=== PATIENT | female | born 1960 | race Caucasian/White ===

== ENCOUNTER 2021-07-07 07:09 | Emergency (ER) | payer BC, SELFPAY ==
[2021-07-07] VITALS (8 sets, daily range): BP systolic 101–126; BP diastolic 61–77; PULSE 71–130; RESP 14–21; TEMP 36.5–37; O2SAT 92–98; BMI 46.7
--- NOTE | 2021-07-07 07:09 | ECG_ITS ---
APPROVED REPORT Exam: Resting ECG HR:137 bpm ECG Measurements Heart Rate 137 AXES QRSd 72 QRS -10 QT 292 T 53 QTc 372 Conclusion SUPRAVENTRICULAR TACHYCARDIA MINIMAL ST DEPRESSION [0.025+ mV ST DEPRESSION] ABNORMAL RHYTHM ECG UNCONFIRMED REPORT Electronically signed by : Sabino Rodrigues MD 07/08/2021 08:16:53
--- NOTE | 2021-07-07 07:20 | PC.NURSE ---
GERALD SHOEMAKER spoke with Dr Lee.
--- NOTE | 2021-07-07 07:30 | ECG_ITS ---
APPROVED REPORT Exam: Resting ECG HR:82 bpm ECG Measurements Heart Rate 82 AXES HI 193 P 149 QRSd 100 QRS -17 QT 380 T 135 QTc 418 Conclusion ECTOPIC ATRIAL RHYTHM LEFT ATRIAL ENLARGEMENT [-0.15mV P-WAVE IN V1/V2] MODERATE T-WAVE ABNORMALITY, CONSIDER LATERAL ISCHEMIA [-0.1+ mV T-WAVE IN I/aVL/V5/V6] ABNORMAL ECG UNCONFIRMED REPORT Electronically signed by : Sabino Rodrigues MD 07/08/2021 08:16:51
--- NOTE | 2021-07-07 07:30 | PC.NURSE ---
pt states now pain free
--- NOTE | 2021-07-07 07:35 | CA_ITS ---
APPROVED REPORT EXAM: Comprehensive 2D, Doppler, and color-flow Echocardiogram Wood Finisher Apprentice: Denise Lawrence RT(R) Ht: 5 ft 6 in Wt: 350lbs BSA: 2.54 BP: 118/84 mmHg Indications: CP, smoker, obesity, hyperlipidemia, HTN, DM, obesity, family history of HD. 2D Dimensions LVEF (Brush's) 54.10 % F: 54 - 74 LV Volume 99.90 mL F: 46 - 106 LV Volume Index 39.48 mL/m2 F: 29 - 61 LA Volume 36.50 mL LA Volume Index 14.42 mL/m2 (M/F) 16-34 M-Mode Dimensions RVDd 2.76 cm (0.9-2.6) LVDd 4.09 cm (3.5-5.7) LVDs 3.26 cm (3.5-5.7) IVSd 1.23 cm (0.6-1.1) PWd 1.18 cm (0.6-1.1) EF (Teich) 42.00% FS 20.30% EDV (Teich) 73.80 mL ESV (Teich) 42.80 mL LV Diastology E Decel Time 203.00 (160-240 msec) E/A Ratio 1.2 MED E' 4.90 (< 7 cm/sec) E'/MED E' Ratio 22.29 (>14) LAT E' 6.70 (<10 cm/sec) E/LAT E' Ratio 16.30 (>14) Mitral Valve MV E Max Winston. 109.00 (40-130 cm/s) MV A Velocity 89.00 (40-130 cm/s) E/A Ratio 1.22 MV Decel. Time 203.00 (160-240 ms) MV PHT 60.00 ms Left Ventricle Left atrium mildly enlarged, left ventricle is normal size, mild concentric left ventricular hypertrophy, estimated ejection fraction 55% with no regional wall motion abnormality in the obtained views, endocardial subsequently visualized, grade 1 diastolic dysfunction seen with tissue Doppler evidence of raise left atrial pressure. Right Ventricle Right atrium and right ventricle are normal size and contractility. Aortic Valve Aortic valve is poorly visualized, Doppler is not indicated of a significant aortic stenosis or aortic insufficiency. Mitral Valve Mitral valve has mitral annular calcification, there is no mitral stenosis, there is trace mitral regurgitation. Tricuspid Valve Tricuspid grossly normal, there is trace tricuspid regurgitation, tricuspid regurgitation jet velocity is inadequate for calculation of the right ventricular systolic pressure. Pulmonic Valve Pulmonic valve is poorly visualized. Great Vessels Aortic root is normal size. Inferior vena cava is poorly visualized. Pericardium No significant pericardial effusion noted. Conclusion 1. Mildly enlarged left atrium, normal left ventricular size, mild concentric left ventricular hypertrophy, estimated ejection fraction 55% with no regional wall motion abnormality in the obtained views, endocardial subsequently visualized, grade 1 diastolic dysfunction seen with tissue Doppler evidence of raise left atrial pressure. 2. Trace mitral and tricuspid regurgitation. 3. No significant pericardial effusion. 4. Inferior vena cava is poorly visualized. Electronically signed by : Og Sheehan MD 07/07/2021 15:22:32
--- NOTE | 2021-07-07 07:35 | PC.NURSE ---
Walked out and grabbed patient's daughter. Daughter at bedside.
--- NOTE | 2021-07-07 07:35 | XR_ITS ---
FINAL REPORT CLINICAL HISTORY: chest pain FINDINGS: SINGLE VIEW CHEST. The heart is normal in size. The mediastinum is unremarkable. The lungs are clear. There is no pneumothorax. IMPRESSION: No acute process. Reviewed, Interpreted and Dictated by Rene Fisher III, MD Transcribed by Magali An Authenticated by Rene Fisher III, MD on 07/07/2021 08:29:24 AM [facility]
--- NOTE | 2021-07-07 07:36 | PC.NURSE ---
notified CV lab staff of echo order
--- NOTE | 2021-07-07 07:46 | HMH.EDARPALP ---
ED Disposition Clinical Impression: SVT (supraventricular tachycardia), Renal insufficiency Obesity Qualifiers: Obesity type: due to excess calories Obesity classification: adult class 3 (BMI >= 40) Serious obesity comorbidity presence: with serious comorbidity Body mass index: BMI 45.0-49.9 Qualified Code(s): E66.01 - Morbid (severe) obesity due to excess calories Disposition: Home, Self-Care Condition on Discharge: Good Instructions: Paroxysmal Supraventricular Tachycardia Additional Instructions: use meds and see pcp and card for follow up Prescriptions: dilTIAZem HCL [Cardizem CD 120mg Cap] 120 mg PO DAILY #30 cap Transmission Status: Pending to [id number] Referrals: Teagan De La Garza APRN [Primary Care Provider] - - Critical Care Critical Care Time: No Attestation: On 07/07/21, the high probability of a clinically significant, sudden or life threatening deterioration of the following system(s) required my full and direct attention, intervention and personal management. The time I documented below is in addition to time spent performing reported procedures but includes the following listed in this critical care notation. Medical Decision Making - Medical Records Medical records reviewed: Yes: I reviewed the patient's medical records. - Fidel Inquiry Pt receiving controlled substance: No Vital Signs: 07/07/21 06:52 07/07/21 07:29 07/07/21 08:13 Temperature 97.7 F Temperature Source Oral Pulse Rate 83 76 Pulse Rate [Radial] 130 H Respiratory Rate 20 21 20 Blood Pressure 118/74 116/61 Blood Pressure [Right Arm] 109/65 L Blood Pressure Mean 81 79 Blood Pressure Mean [Right Arm] 79 Blood Pressure Position [Right Arm] Sitting 02 Sat by Pulse Oximetry 98 95 97 Oxygen Delivery Method Room Air Nasal Cannula Nasal Cannula Oxygen Flow Rate (LPM) 2 2 07/07/21 08:30 07/07/21 09:01 07/07/21 10:01 Temperature Temperature Source Pulse Rate 74 77 71 Pulse Rate [Radial] Respiratory Rate 20 21 19 Blood Pressure 120/67 121/77 124/71 Blood Pressure [Right Arm] Blood Pressure Mean 79 91 94 Blood Pressure Mean [Right Arm] Blood Pressure Position [Right Arm] 02 Sat by Pulse Oximetry 95 97 94 L Oxygen Delivery Method Nasal Cannula Nasal Cannula Nasal Cannula Oxygen Flow Rate (LPM) 2 2 2 07/07/21 10:31 Temperature Temperature Source Pulse Rate 71 Pulse Rate [Radial] Respiratory Rate 14 Blood Pressure 126/61 Blood Pressure [Right Arm] Blood Pressure Mean 82 Blood Pressure Mean [Right Arm] Blood Pressure Position [Right Arm] 02 Sat by Pulse Oximetry 95 Oxygen Delivery Method Nasal Cannula Oxygen Flow Rate (LPM) 2 - Lab Data Lab results reviewed: Yes: I reviewed the patient's lab results. Lab Results 07/07/21 07:20: WBC 10.3, RBC 5.01, Hgb 14.4, Hct 45.4, MCV 90.6, MCH 28.8, MCHC 31.8, RDW 14.6, Plt Count 367, MPV 10.1, Neut % (Auto) 76.2, Lymph % (Auto) 16.0, [place] % (Auto) 5.3, Eos % (Auto) 1.7, Baso % (Auto) 0.8, Neut # (Auto) 7.9 H, Lymph # (Auto) 1.7, [place] # (Auto) 0.6, Eos # (Auto) 0.2, Baso # (Auto) 0.1 07/07/21 07:20: Sodium 139, Potassium 4.8, Chloride 107, Carbon Dioxide 22, Anion Gap 14.8, BUN 31 H, Creatinine 1.10 H, Estimated Creat Clear 51, Estimated GFR 51 L, Est GFR ( Amer) 61, Glucose 242 H, Calcium 8.9, Troponin I < 0.01, NT-Pro-B Natriuret Pep 633 H, TSH 4.06 07/07/21 07:20: Total Bilirubin 0.4, Direct Bilirubin 0.4, Conjugated Bilirubin 0.0, Indirect Bilirubin 0.0, Unconjugated Bilirubin 0.0, AST 29, ALT 26, Alkaline Phosphatase 121, C-Reactive Protein 33.0 H, Total Protein 7.1, Albumin 4.0 07/07/21 07:20: Free T4 1.04 07/07/21 07:20: ESR 59 H Result diagrams: 07/07/21 07:20 07/07/21 07:20 Orders (Tests/Meds): ED MEDICATIONS Discontinued Medications Generic Name Dose Route Start Last Admin Trade Name Freq PRN Reason Stop Dose Admin Adenosine 6 mg 07/07/21 07:39 07/07/21 07:28 Adenosine 6mg/2ml Vial I
[2021-07-07 07:49] LABS: Basophils # 0.1 K/mm3 (0-0.2); Basophils % 0.8 % (0.1-2.0); Eosinophils # 0.2 K/mm3 (0.0-0.4); Eosinophils % 1.7 % (0.1-12.0); Hematocrit 45.4 % (37.0-47.0); Hemoglobin 14.4 g/dL (12.2-16.2); Lymphocytes # 1.7 K/mm3 (0.7-4.5); Mean Corpuscular HGB Conc 31.8 g/dL (31.8-35.4); Mean Corpuscular Hemoglobin 28.8 pg (27.0-31.2); Mean Corpuscular Volume 90.6 fl (81-99); Mean Platelet Volume 10.1 fl (7.4-10.4); Monocytes # 0.6 K/mm3 (0.1-1.0); Monocytes % 5.3 % (1.7-9.3); Neutrophils # 7.9 K/mm3 (1.8-7.8); Neutrophils % 76.2 % (37.0-80.0); Platelet Count 367 K/mm3 (142-424); Red Blood Count 5.01 M/mm3 (4.20-5.40); Red Cell Distribution Width 14.6 % (11.5-17.5); White Blood Count 10.3 K/mm3 (4.8-10.8)
[2021-07-07 07:50] LABS: Chloride 107 mmol/L (98-107); Potassium 4.8 mmoL/L (3.5-5.1); Sodium 139 mmol/L (136-145)
--- NOTE | 2021-07-07 07:50 | PC.NURSE ---
IV ultrasound RN at bedside
[2021-07-07 07:52] LABS: Alanine Aminotransferase 26 U/L (12-78); Alkaline Phosphatase 121 U/L (38-126); Aspartate Amino Transferase 29 U/L (14-36); Bilirubin,Direct 0.4 mg/dl (0.0-0.4); Bilirubin,Total 0.4 mg/dl (0.2-1.3)
[2021-07-07 07:53] LABS: Anion Gap 14.8 mEq/L (5-15); Blood Urea Nitrogen 31 mg/dl (7-17); Calcium 8.9 mg/dl (8.4-10.2); Carbon Dioxide 22 mmol/L (22.0-30.0); Creatinine Clearance Estimated 51 mL/min (50-200); Estimated Glomerular Filt Rate 51 ml/min (>60); GFR (African American) 61 ML/MIN (>60); Glucose 242 mg/dl (74-100); Total Protein,Serum 7.1 g/dl (6.3-8.2)
[2021-07-07 08:04] LABS: NT Pro Brain Natriuretic Pep. 633 pg/mL (0-125)
[2021-07-07 08:08] LABS: Troponin I < 0.01 ng/ml (0.00-0.034)
[2021-07-07 08:12] LABS: Free T4 (Free Thyroxine) 1.04 ng/dl (0.78-2.19)
[2021-07-07 08:25] LABS: Thyroid Stimulating Hormone 4.06 uIU/mL (0.465-4.68)
[2021-07-07 08:42] LABS: Erythrocyte Sedimentation Rate 59 mm/hr (0-30)
--- NOTE | 2021-07-07 10:15 | PC.NURSE ---
breanna blackn at BS
--- NOTE | 2021-07-07 11:10 | HMH.CNCARD ---
History of Present Illness Consult date: 07/07/21 Requesting physician: Darnell Felipe Chief complaint: racing heart and anxiety History of present illness: This is a 60-year-old white female who presented to the emergency department with complaints of a racing heart. The patient states that she has anxiety in her chest at times but her episode this morning was much harder and faster than normal. She states that this made her chest uncomfortable. The she states that this did make her feel little short of breath as well. She reports that she does see Dr. Berg regularly. She does have a history with stenting in 2005. She states that Dr. Meek does do stress testing on her regularly. She was found to be in SVT when she got to the emergency department. Dr. Lee was contacted and she was treated with adenosine. She converted to sinus rhythm. She states that she feels great now. She denies any chest pain or pressure. She denies any recurrence of the racing of her heart. She denies any shortness of breath or edema. She denies any fever, chills, nausea, vomiting, diarrhea, PND or orthopnea. [facility] History I have reviewed the patient's past medical history: Yes Medical History: Reports:: Anxiety, Arrhythmia (SVT), Atherosclerotic Heart Disease, Coronary Artery Disease, Diabetes Mellitus Type 2, Hyperlipidemia, Hypertension *Have you ever received a pneumonia vaccine?: Yes *Have you received a flu vaccine this season?: Yes Other Surgeries: Yes: Cardiac Catheterization, Coronary Stent - *Social History Smoking Status: Current every day smoker Tobacco Type: cigarettes # Packs/Day (cigarettes): 1 Alcohol Intake: never *Occupational Status:: other *Travel in the last 8 weeks: None Family Hx:: Coronary Artery Disease, Hyperlipidemia, Hypertension Meds Home Medications Medication Instructions Recorded Confirmed Type Aspirin [Aspirin 81mg chewable 81 mg PO DAILY 07/07/21 07/07/21 History tab] Buspirone HCl [Buspar 10mg 10 mg PO BID 07/07/21 07/07/21 History tablet] Metformin HCl 500 mg PO TID 07/07/21 07/07/21 History Metoprolol Succinate [Metoprolol 25 mg PO BID 07/07/21 07/07/21 History Succinate 25mg Tablet*] Simvastatin 40 mg PO HS 07/07/21 07/07/21 History dilTIAZem HCL [Cardizem CD 120mg 120 mg PO DAILY #30 cap 07/07/21 Rx Cap] lisinopriL [Lisinopril] 20 mg PO ONCE 07/07/21 07/07/21 History Allergies Allergy/AdvReac Type Severity Reaction Status Date / Time Penicillins Allergy Verified 07/07/21 08:02 Exam Vital signs and Labs for Last 24 Hours: Temp Pulse Resp BP Pulse Ox 97.7 F 71 14 126/61 95 07/07/21 06:52 07/07/21 10:31 07/07/21 10:31 07/07/21 10:31 07/07/21 10:31 Laboratory Results - last 24 hr 07/07/21 07:20: WBC 10.3, RBC 5.01, Hgb 14.4, Hct 45.4, MCV 90.6, MCH 28.8, MCHC 31.8, RDW 14.6, Plt Count 367, MPV 10.1, Neut % (Auto) 76.2, Lymph % (Auto) 16.0, [place] % (Auto) 5.3, Eos % (Auto) 1.7, Baso % (Auto) 0.8, Neut # (Auto) 7.9 H, Lymph # (Auto) 1.7, [place] # (Auto) 0.6, Eos # (Auto) 0.2, Baso # (Auto) 0.1 07/07/21 07:20: Sodium 139, Potassium 4.8, Chloride 107, Carbon Dioxide 22, Anion Gap 14.8, BUN 31 H, Creatinine 1.10 H, Estimated Creat Clear 51, Estimated GFR 51 L, Est GFR ( Amer) 61, Glucose 242 H, Calcium 8.9, Troponin I < 0.01, NT-Pro-B Natriuret Pep 633 H, TSH 4.06 07/07/21 07:20: Total Bilirubin 0.4, Direct Bilirubin 0.4, Conjugated Bilirubin 0.0, Indirect Bilirubin 0.0, Unconjugated Bilirubin 0.0, AST 29, ALT 26, Alkaline Phosphatase 121, C-Reactive Protein 33.0 H, Total Protein 7.1, Albumin 4.0 07/07/21 07:20: Free T4 1.04 07/07/21 07:20: ESR 59 H I & O for Last 24 hours: Intake & Output 07/04/21 07/05/21 07/06/21 07/07/21 23:59 23:59 23:59 23:59 Weight 290 lb Narrative: EKG #1 shows SVT with a rate of 137. EKG #2 shows sinus rhythm with lateral ST/T wave abnormalities and a rate of 83. - Constitutional no acute distress, obese
== END 2021-07-07 11:43 | disposition home or self-care (01) ==
PROVIDERS: Emergency Provider Emergency Medicine; PCP Nurse Practitioner Family
DX: I47.1 Supraventricular tachycardia (principal); N28.9 Disorder of kidney and ureter, unspecified; E66.01 Morbid (severe) obesity due to excess calories; E11.9 Type 2 diabetes mellitus without complications; F17.210 Nicotine dependence, cigarettes, uncomplicated; Z79.899 Other long term (current) drug therapy
CPT/HCPCS: 71045; 80048; 80076; 83880; 84439; 84443; 84484; 85025; 85651; 86140; 93005; 93306; 96360; 96365; 96375; 99284

== ENCOUNTER 2021-12-01 15:32 | Inpatient (IN) | payer BC, SELFPAY ==
[2021-12-01] VITALS (20 sets, daily range): BP systolic 82–174; BP diastolic 40–90; PULSE 81–146; RESP 18–30; TEMP 36.4–38.2; O2SAT 90–96; BMI 46.7
--- NOTE | 2021-12-01 15:54 | ECG_ITS ---
APPROVED REPORT Exam: Resting ECG HR:153 bpm ECG Measurements Heart Rate 153 AXES QRSd 84 QRS 16 QT 325 T 73 QTc 411 Conclusion ATRIAL FLUTTER/TACHYCARDIA WITH RAPID VENTRICULAR RESPONSE POSSIBLE INFERIOR MYOCARDIAL INFARCTION , PROBABLY OLD [30 ms Q WAVE IN II/aVF] CRITICAL TEST RESULT UNCONFIRMED REPORT Electronically signed by : Sabino Rodrigues MD 12/02/2021 07:58:55
--- NOTE | 2021-12-01 16:19 | PC.NURSE ---
notified ER MD of pt stated c/o. ER MD reports has reviewed EKG. Notified ER MD pt is prescribed carvedilol but has not taken it in a couple of days, pt son reported pt has had SVT before. No new orders obtained at this time, will continue to monitor.
[2021-12-01 16:29] LABS: Basophils # 0.1 K/mm3 (0-0.2); Basophils % 0.3 % (0.1-2.0); Eosinophils # 0.1 K/mm3 (0.0-0.4); Eosinophils % 0.4 % (0.1-12.0); Hemoglobin 13.4 g/dL (12.2-16.2); Lymphocytes # 1.2 K/mm3 (0.7-4.5); Lymphocytes % 4.3 % (10-50); Mean Corpuscular HGB Conc 31.2 g/dL (31.8-35.4); Mean Corpuscular Hemoglobin 28.1 pg (27.0-31.2); Mean Corpuscular Volume 89.9 fl (81-99); Mean Platelet Volume 9.2 fl (7.4-10.4); Monocytes % 3.5 % (1.7-9.3); Neutrophils # 26.4 K/mm3 (1.8-7.8); Neutrophils % 91.5 % (37.0-80.0); Platelet Count 440 K/mm3 (142-424); Red Blood Count 4.78 M/mm3 (4.20-5.40); Red Cell Distribution Width 14.5 % (11.5-17.5); White Blood Count 28.9 K/mm3 (4.8-10.8)
[2021-12-01 16:33] LABS: MANUAL DIFFERENTIAL MANUAL DIFFERENTIAL (MANUAL DIFF)
[2021-12-01 16:35] LABS: Alanine Aminotransferase 29 U/L (12-78); Albumin Level 3.9 g/dl (3.5-5.0); Albumin/Globulin Ratio 1.1 (1.1-1.8); Alkaline Phosphatase 233 U/L (38-126); Anion Gap 19.4 mEq/L (5-15); Aspartate Amino Transferase 29 U/L (14-36); Bilirubin,Total 1.1 mg/dl (0.2-1.3); Blood Urea Nitrogen 17 mg/dl (7-17); Calcium 9.5 mg/dl (8.4-10.2); Carbon Dioxide 20 mmol/L (22.0-30.0); Chloride 103 mmol/L (98-107); Creatinine Clearance Estimated 50 mL/min (50-200); Estimated Glomerular Filt Rate 50 ml/min (>60); GFR (African American) 61 ML/MIN (>60); Globulin 3.6 g/dL (1.3-3.2); Glucose 212 mg/dl (74-100); Potassium 3.4 mmoL/L (3.5-5.1); Sodium 139 mmol/L (136-145); Total Protein,Serum 7.5 g/dl (6.3-8.2)
--- NOTE | 2021-12-01 16:38 | PC.NURSE ---
notified ER MD of WBC, pt c/o pain. ER MD gave verbal order for CT scan with IV contrast and Morphine 4 mg iv once and Zofran 4mg IV once.
--- NOTE | 2021-12-01 16:53 | XR_ITS ---
PROCEDURE INFORMATION: Exam: XR Chest Exam date and time: 12/01/2021 5:30 PM Age: 61 years old Clinical indication: Abnormal findings; Abnormal diagnostic tests; Abnormal ekg; Additional info: Leukocytosis, rapid hr TECHNIQUE: Imaging protocol: Radiologic exam of the chest. Views: 1 view. COMPARISON: CR XR CHEST PORTABLE 07/07/2021 7:46 AM FINDINGS: Lungs: Opacities in the bases may represent atelectasis or pneumonia.. Pleural spaces: Unremarkable. No pleural effusion. No pneumothorax. Heart/Mediastinum: Unremarkable. No cardiomegaly. Bones/joints: Unremarkable. IMPRESSION: Opacities in the bases may represent atelectasis or pneumonia..
--- NOTE | 2021-12-01 16:54 | PC.NURSE ---
Pt placed on 3L per NC r/t Sao2 87%, pt laying on her side taking shallow breaths and is a mouth breather. Pt coached to breathe in her nose and out her mouth and to slow breathing down. Will continue to monitor. Pt also reports being hot, cool rag applied to pt head.
--- NOTE | 2021-12-01 16:59 | PC.NURSE ---
notified rad of CT order
[2021-12-01 17:00] LABS: Lymphocytes % 8 % (10-50); Monocytes % 3 % (2-9); Neutrophils % 89 % (42-76); Total Cells Counted 100
[2021-12-01 17:01] LABS: Platelet Estimate Normal; RBC Morphology Normal
--- NOTE | 2021-12-01 17:07 | PC.NURSE ---
call or contact centre team leader general surgeon has been paged
--- NOTE | 2021-12-01 17:08 | HMH.EDGENADL ---
Discharge Plan Disposition Patient Disposition: Admitted As Inpatient Condition: Serious Chief Complaint: Skin/Abscess/Foreign Body Prescriptions Prescriptions: No Action metformin 500 MG tablet 500 mg PO BID Rx Instructions: 2 tablets in AM 1 tablet in PM lisinopril 20 MG tablet 20 mg PO ONCE aspirin 81 MG tablet,chewable 81 mg PO DAILY metoprolol succinate 25 MG tablet extended release 24 hr 50 mg PO BID tizanidine 4 mg tablet 4 mg PO BID meloxicam 7.5 mg tablet 7.5 mg PO DAILY bupropion HCl 150 mg tablet extended release 24 hr 150 mg PO BID diltiazem HCl [Cartia XT] 120 mg capsule,extended release 24hr 120 mg PO DAILY Rx Instructions: Take 1 capsule by mouth once daily Referrals Referrals: Teagan De La Garza APRN [Primary Care Provider] - Enter time for follow up Clinical Impressions Clinical Impression: Abscess, perirectal, Sepsis Discharge ED Provider: Grzegorz Rowe General Adult HPI General Chief complaint: Skin/Abscess/Foreign Body Stated complaint: SPOT ON LEFT SIDE OF TAIL Time Seen by Provider: 12/01/21 16:55 Mode of Arrival: Wheelchair Source of Information: Patient Limitations: No Limitations Description of Symptoms (Recalled from ER Triage Doc. by RN): Pt reports she has a sore on her L lower buttocks area. Pt reports area first noticed on Saturday of this week. Pt reports was seen by PCP was told she possibly has an internal hemrrhoid, states she was told they were going to call in medication for her but they have not. Upon exam pt does raised area near rectum but also her L buttock area is hard and warm to the touch. History of Present Illness HPI narrative: Patient has a painful sore on her left perianal and buttock area since Saturday. Has seen her primary care provider and was supposed to be called in medication but has not yet received it. Denies fever. Has felt ill and has not been eating much, therefore has not had a bowel movement in 4 days. No prior similar problems. The patient does have diabetes. Related Data Home Medications Medication Instructions Recorded Confirmed aspirin 81 mg chewable tablet 81 mg PO DAILY Heart disease 07/07/21 12/01/21 lisinopril 20 mg tablet 20 mg PO ONCE High blood pressure 07/07/21 12/01/21 metformin 500 mg tablet 500 mg PO BID Diabetes 07/07/21 12/01/21 metoprolol succinate 25 mg 50 mg PO BID High blood pressure 07/07/21 12/01/21 tablet,extended release 24 hr bupropion HCl 150 mg 24 hr tablet, 150 mg PO BID mood 12/01/21 12/01/21 extended release diltiazem HCl 120 mg 120 mg PO DAILY bp 12/01/21 12/01/21 capsule,extended release 24 hr (Cartia XT) meloxicam 7.5 mg tablet 7.5 mg PO DAILY inflammation 12/01/21 12/01/21 tizanidine 4 mg tablet 4 mg PO BID muscle spasms 12/01/21 12/01/21 Allergies Allergy/AdvReac Type Severity Reaction Status Date / Time Penicillins Allergy Verified 07/07/21 08:02 [facility] Social History Smoking Status: Never smoker alcohol intake: never current occupational status: other ROS Obtained: Yes All systems reviewed & no additional complaints except as documented Constitutional Constitutional: Denies fever(s) and Reports poor appetite Cardiovascular Cardiovascular: Denies chest pain Respiratory Respiratory: Denies shortness of breath and Denies cough Gastrointestinal Gastrointestingal: Denies abdominal pain, diarrhea or vomiting Genitourinary Female Genitourinary: Denies difficulty voiding Integumentary/Breasts Skin/Breast: Reports as per HPI Physical Exam General General appearance: alert Comment: Laying on her side, wet washcloth on her forehead. Head Head exam: atraumatic and normocephalic Eye Eye exam: Present normal appearance and EOMI ENT ENT exam: Present mucous membranes moist Neck Neck exam: Present normal inspection and trachea midline Chest Chest inspection: Present normal inspection and symmetric shila
--- NOTE | 2021-12-01 17:09 | PC.NURSE ---
GERALD SHOEMAKER speaking with
[2021-12-01 17:15] LABS: Coronavirus 19, PCR Not Detected (NotDetected); Influenza A, PCR Not Detected (NotDetected); Influenza B, PCR Not Detected (NotDetected)
--- NOTE | 2021-12-01 17:18 | PC.NURSE ---
DR SHAHID SPEAKING TO DR XAVIER ABOUT ADMISSION
--- NOTE | 2021-12-01 17:21 | PC.NURSE ---
rad at BS for portable xray
--- NOTE | 2021-12-01 17:22 | PC.NURSE ---
notified warehouse unloader of admission and also that Dr. Pozo stated to ER that he is going to take pt to surgery, unknown time.
--- NOTE | 2021-12-01 17:25 | PC.NURSE ---
staple shear operator paging dr. wright
--- NOTE | 2021-12-01 17:31 | PC.NURSE ---
Dr Pozo at bedside
--- NOTE | 2021-12-01 17:33 | PC.NURSE ---
on the phone with
--- NOTE | 2021-12-01 17:41 | PC.NURSE ---
report given to anthony watts
--- NOTE | 2021-12-01 17:42 | PC.NURSE ---
Notified Temo Larson RN of pending surgery per Dr. Pozo.
--- NOTE | 2021-12-01 17:42 | PC.NURSE ---
Went in to patient's room to change her into a gown
--- NOTE | 2021-12-01 17:49 | PC.NURSE ---
1743: Spoke to LINDA Grace to notify her of pending surgery. 174: Spoke to Zuleima Pleitez air traffic systems technician to notify her of pending surgery.
--- NOTE | 2021-12-01 17:49 | EXP.SURG.CON ---
History of Present Illness *Admission Date: 12/01/21 *Reason for visit:: Abscess *History of present illness: This is a 61-year-old female seen in consultation after presenting to the emergency department with perianal and left buttock pain. She was diagnosed with a complex abscess and the surgical service was consulted. Please see HPI forwarded from emergency department evaluation below. Forwarded from emergency department evaluation: General Adult HPI General Chief complaint: Skin/Abscess/Foreign Body Stated complaint: SPOT ON LEFT SIDE OF TAIL Time Seen by Provider: 12/01/21 16:55 Mode of Arrival: Wheelchair Source of Information: Patient Limitations: No Limitations Description of Symptoms (Recalled from ER Triage Doc. by RN): Pt reports she has a sore on her L lower buttocks area.? Pt reports area first noticed on Saturday of this week.? Pt reports was seen by PCP was told she possibly has an internal hemrrhoid, states she was told they were going to call in medication for her but they have not.? Upon exam pt does raised area near rectum but also her L buttock area is hard and warm to the touch. History of Present Illness HPI narrative: Patient has a painful sore on her left perianal and buttock area since Saturday.? Has seen her primary care provider and was supposed to be called in medication but has not yet received it.? Denies fever.? Has felt ill and has not been eating much, therefore has not had a bowel movement in 4 days.? No prior similar problems.? The patient does have diabetes. PFSH PFSH Medical History SVT (supraventricular tachycardia) Social History Smoking Status: Never smoker alcohol intake: never substance use type: denies use current occupational status: other Travel in the last 8 weeks: None Review of Systems Constitutional Constitutional: Denies fever(s) *Respiratory Respiratory: Denies cough Integumentary/Breasts Skin/Breast: Reports furuncle Meds Home Medications and Allergies Home Medications Medication Instructions Recorded Confirmed Type aspirin 81 mg chewable tablet 81 mg PO DAILY Heart disease 07/07/21 12/20/21 History lisinopril 20 mg tablet 20 mg PO DAILY High blood pressure 07/07/21 12/20/21 History metformin 500 mg tablet 500 mg PO BIDWMEAL Diabetes 07/07/21 12/20/21 History bupropion HCl 150 mg 24 hr tablet, 150 mg PO BID mood 12/01/21 12/20/21 History extended release diltiazem HCl 120 mg 120 mg PO DAILY High blood pressure 12/01/21 12/20/21 History capsule,extended release 24 hr (Cartia XT) meloxicam 7.5 mg tablet 7.5 mg PO DAILY Arthritis 12/01/21 12/20/21 History tizanidine 4 mg tablet 4 mg PO BIDP PRN MUSCLE SPASMS 12/01/21 12/20/21 History metoprolol tartrate 50 mg tablet 50 mg PO BID High blood pressure 12/02/21 12/20/21 History simvastatin 40 mg tablet 40 mg PO HS Cholesterol 12/02/21 12/20/21 History hydrocodone 5 mg-acetaminophen 325 1 tab PO Q6H PRN pain #14 tabs 12/05/21 12/20/21 Rx mg tablet levofloxacin 750 mg tablet 750 mg PO DAILY 7 days #7 tabs 12/05/21 12/20/21 Rx New Prescriptions to Start Prescriptions: hydrocodone-acetaminophen AriesabeMichael micheleel levofloxacin Prosper Wu Allergies Allergy/AdvReac Type Severity Reaction Status Date / Time Penicillins Allergy Verified 12/20/21 14:04 Exam (Inpt) Vital signs and Labs for Last 24 Hours: Temp Pulse Resp BP Pulse Ox 99.3 F 142 H 30 H 120/64 93 L 12/01/21 15:35 12/01/21 17:30 12/01/21 17:30 12/01/21 17:30 12/01/21 17:30 Laboratory Results - last 24 hr 12/01/21 16:05: WBC 28.9 H*, RBC 4.78, Hgb 13.4, Hct 43.0, MCV 89.9, MCH 28.1, MCHC 31.2 L, RDW 14.5, Plt Count 440 H, MPV 9.2, Neut % (Auto) 91.5 H, Lymph % (Auto) 4.3 L, [place] % (Auto) 3.5, Eos % (Auto) 0.4, Baso % (Auto) 0.3, Neut # (Auto) 26.4 H,
--- NOTE | 2021-12-01 18:03 | EXP.ANES.CKL ---
[facility] Social History Smoking Status: Never smoker alcohol intake: never current occupational status: other [facility] Anesthesia Checklist Patient Identification Patient Identification: Arm Band and Verbal (Name & ) Structural Data Admitted From: Home Planned Operative Procedure/s: I & D candido-rectal abscess Consent for Planned Operative Procedure(s) Verified: Yes NPO Status Verified Time NPO: 00:00 Airway Assessment C-Spine Mobility Assessed: Yes TMJ Mobility Assessed: Yes Neurological Assessment Level of Consciousness: Awake Hx Seizures: No Numbness or tingling in extremities: No Anesthesia Plan Anesthesia Risk discussed: Yes Anesthesia Plan: Verified ASA Class: III Anesthesia Type: General
--- NOTE | 2021-12-01 18:26 | PC.NURSE ---
Patient was taken up to surgery
--- NOTE | 2021-12-01 18:47 | EXP.OP.NOTE ---
Date of procedure: 12/01/21 Pre-op Diagnosis:: Left perianal/ischiorectal fossa/buttock abscess Post-op Diagnosis:: Same Procedure performed:: Incision and drainage of left perianal/ischiorectal fossa/buttock abscess Surgeon:: Travis Pozo MD NURSE PRACTITIONER HOME ASSESSMENTS:: Sanjay Harley Anesthesia: LMA Estimated blood loss (mL): 15 Operative findings:: Complex left perianal margin abscess with projection into the ischiorectal/medial buttock region Operative note:: After informed consent was obtained the patient was taken to the operating room and placed in the supine position. General anesthesia via laryngeal mask airway was achieved. She was transferred to the left lateral decubitus position. The left buttock region was carefully exposed. A small punctate area of drainage was noted. Careful palpation revealed an easily accessible abscess cavity. Fluid was obtained for gram stain/culture. The entire cavity was then carefully evacuated and packed with Kerlix. Dressings were applied and the patient was transferred to recovery in stable condition. Condition: stable Disposition: PACU Specimens:: Fluid for gram stain/culture Complications:: No immediate
--- NOTE | 2021-12-01 18:59 | P.PNANES_ITS ---
[facility] Anesthesia Record Part I Anesthesia Record I Intake, IV Amount: 700 Estimated blood loss (mL): 2 Urine output (mL): 0 Blood Pressure: 89/40 SaO2: 92 Pulse Rate: 119 Respiratory Rate: 24 Temperature: 97.5 F Patient is:: Awake Stable to PACU at:: 18:55
--- NOTE | 2021-12-01 19:01 | EXP.ANES.CKL ---
[facility] Social History Smoking Status: Never smoker alcohol intake: never substance use type: denies use current occupational status: other [facility] Anesthesia Checklist Patient Identification Patient Identification: Arm Band and Verbal (Name & ) Structural Data Admitted From: Home Planned Operative Procedure/s: I & D candido-rectal abscess Consent for Planned Operative Procedure(s) Verified: Yes NPO Status Verified Time NPO: 00:00 Airway Assessment C-Spine Mobility Assessed: Yes TMJ Mobility Assessed: Yes Dentition: Poor Dentition Neurological Assessment Level of Consciousness: Awake Hx Seizures: No Numbness or tingling in extremities: No Anesthesia Plan Anesthesia Risk discussed: Yes Anesthesia Plan: Verified ASA Class: III Anesthesia Type: General
--- NOTE | 2021-12-01 19:02 | P.PNANES_ITS ---
[facility] Anesthesia Record Part I Anesthesia Record I Intake, IV Amount: 700 Estimated blood loss (mL): 2 Urine output (mL): 0 Blood Pressure: 89/44 SaO2: 92 Pulse Rate: 119 Respiratory Rate: 24 Temperature: 97.5 F Patient is:: Awake Stable to PACU at:: 18:55
[2021-12-01 19:17] LABS: POC Glucose,Bedside 262 (70-110)
--- NOTE | 2021-12-01 19:32 | PC.NURSE ---
PT. ARRIVED TO FLOOR VIA BED AT THIS TIME
--- NOTE | 2021-12-01 19:39 | SUR.PHASEI ---
LATE ENTRY 1910 BS obtained with results of 262. Debbie Harley CRNA notified. No new orders given at this time. Debbie Harley CRNA is okay as long as BS is below 300. 1923 called and gave detailed report to valarie Bernardo/rn surgical pcu 1929 transported via bed to med/surg room. vital signs stable. rates pain at a level 4. transported on 3L oxygen as well. left in stable condition with valarie Bernardo/rn surgical pcu at bedside.
[2021-12-02] VITALS (10 sets, daily range): BP systolic 103–136; BP diastolic 50–61; PULSE 70–110; RESP 16–19; TEMP 36.4–37.3; O2SAT 92–98; BMI 47.4
--- NOTE | 2021-12-02 04:44 | PC.NURSE ---
Patient a&o x4. Patient admitted from OR. When patient arrived to the floor patient was tachycardic, hypotensive, with a fever. Continued with patients sepsis fluid orders. Now VSS. Medicated patient for pain per MAR. Dressing to left buttock with bloody drainage noted and outlined.
[2021-12-02 09:11] LABS: Basophils % 0.2 % (0.1-2.0); Eosinophils # 0.1 K/mm3 (0.0-0.4); Eosinophils % 0.5 % (0.1-12.0); Hematocrit 36.3 % (37.0-47.0); Lymphocytes # 0.9 K/mm3 (0.7-4.5); Lymphocytes % 4.8 % (10-50); Mean Corpuscular Hemoglobin 28.1 pg (27.0-31.2); Mean Corpuscular Volume 90.9 fl (81-99); Mean Platelet Volume 9.7 fl (7.4-10.4); Monocytes # 0.7 K/mm3 (0.1-1.0); Monocytes % 3.4 % (1.7-9.3); Neutrophils # 17.9 K/mm3 (1.8-7.8); Neutrophils % 91.2 % (37.0-80.0); Platelet Count 317 K/mm3 (142-424); Red Blood Count 3.99 M/mm3 (4.20-5.40); Red Cell Distribution Width 14.4 % (11.5-17.5); White Blood Count 19.6 K/mm3 (4.8-10.8)
[2021-12-02 09:19] LABS: Alanine Aminotransferase 21 U/L (12-78); Alkaline Phosphatase 182 U/L (38-126); Anion Gap 12.3 mEq/L (5-15); Aspartate Amino Transferase 22 U/L (14-36); Bilirubin,Total 0.4 mg/dl (0.2-1.3); Blood Urea Nitrogen 22 mg/dl (7-17); Calcium 8.2 mg/dl (8.4-10.2); Carbon Dioxide 21 mmol/L (22.0-30.0); Chloride 110 mmol/L (98-107); Creatinine Clearance Estimated 55 mL/min (50-200); Estimated Glomerular Filt Rate 56 ml/min (>60); GFR (African American) 68 ML/MIN (>60); Glucose 156 mg/dl (74-100); Potassium 3.3 mmoL/L (3.5-5.1); Sodium 140 mmol/L (136-145)
[2021-12-02 09:26] LABS: Hemoglobin 11.3 g/dL (12.2-16.2); MANUAL DIFFERENTIAL MANUAL DIFFERENTIAL (MANUAL DIFF)
--- NOTE | 2021-12-02 09:45 | EXP.HP ---
History of Present Illness *Admission Date: 12/01/21 *Reason for visit:: abscess *History of present illness: This is a 61-year-old female seen in consultation after presenting to the emergency department with perianal and left buttock pain. She was diagnosed with a complex abscess and the surgical service was consulted. Please see HPI forwarded from emergency department evaluation below. Forwarded from emergency department evaluation: General Adult HPI General Chief complaint: Skin/Abscess/Foreign Body Stated complaint: SPOT ON LEFT SIDE OF TAIL Time Seen by Provider: 12/01/21 16:55 Mode of Arrival: Wheelchair Source of Information: Patient Limitations: No Limitations Description of Symptoms (Recalled from ER Triage Doc. by RN): Pt reports she has a sore on her L lower buttocks area.? Pt reports area first noticed on Saturday of this week.? Pt reports was seen by PCP was told she possibly has an internal hemrrhoid, states she was told they were going to call in medication for her but they have not.? Upon exam pt does raised area near rectum but also her L buttock area is hard and warm to the touch. History of Present Illness HPI narrative: Patient has a painful sore on her left perianal and buttock area since Saturday.? Has seen her primary care provider and was supposed to be called in medication but has not yet received it.? Denies fever.? Has felt ill and has not been eating much, therefore has not had a bowel movement in 4 days.? No prior similar problems.? The patient does have diabetes.?reports she has a sore on her L lower buttocks area.? Pt reports area first noticed on Saturday of this week.? Pt reports was seen by PCP was told she possibly has an internal hemrrhoid, states she was told they were going to call in medication for her but they have not.? Upon exam pt does raised area near rectum but also her L buttock area is hard and warm to the touch. abscess pt had not been feeling well over the last few days with dec po intake and was seen in the ed with -pt admitted [facility] Social History (Updated 12/01/21 @ 19:02 by Sanjay Harley CRNA) Smoking Status: Never smoker alcohol intake: never substance use type: denies use current occupational status: other Travel in the last 8 weeks: None Review of Systems Review of Systems Review of systems:: pertinent systems reviewed and negative unless documented below Meds Home Medications and Allergies Home Medications Medication Instructions Recorded Confirmed Type aspirin 81 mg chewable tablet 81 mg PO DAILY Heart disease 07/07/21 12/01/21 History lisinopril 20 mg tablet 20 mg PO DAILY High blood pressure 07/07/21 12/02/21 History metformin 500 mg tablet 500 mg PO BIDWMEAL Diabetes 07/07/21 12/02/21 History bupropion HCl 150 mg 24 hr tablet, 150 mg PO BID mood 12/01/21 12/01/21 History extended release diltiazem HCl 120 mg 120 mg PO DAILY High blood pressure 12/01/21 12/01/21 History capsule,extended release 24 hr (Cartia XT) meloxicam 7.5 mg tablet 7.5 mg PO DAILY Arthritis 12/01/21 12/01/21 History tizanidine 4 mg tablet 4 mg PO BIDP PRN MUSCLE SPASMS 12/01/21 12/02/21 History metoprolol tartrate 50 mg tablet 50 mg PO BID High blood pressure 12/02/21 12/02/21 History simvastatin 40 mg tablet 40 mg PO HS Cholesterol 12/02/21 12/02/21 History New Prescriptions to Start Prescriptions: Allergies Allergy/AdvReac Type Severity Reaction Status Date / Time Penicillins Allergy Verified 07/07/21 08:02 Exam Data for Last 24 hours Vital signs and Labs for Last 24 Hours: Temp Pulse Resp BP Pulse Ox 97.6 F 97 H 16 115/50 L 92 L 12/02/21 08:00 12/02/21 08:00 12/02/21 08:00 12/02/21 08:00 12/02/21 08:00 Laboratory Results - last 24 hr 12/01/21 16:05: WBC 28.9 H*, RBC 4.78, Hgb 13.4, Hct 43.0, MCV 89.9, MCH 28.1, MCHC 31.2 L, RDW 14.5, Plt Count 440 H, MPV 9.2, Neut % (Auto) 91.5 H, Lymph % (Auto) 4.3 L, [place] % (Auto) 3.5, Eos % (Auto)
[2021-12-02 10:27] LABS: Lymphocytes % 13 % (10-50); Monocytes % 2 % (2-9); Neutrophils % 79 % (42-76); Platelet Estimate Normal; Total Cells Counted 100
[2021-12-02 10:29] LABS: RBC Morphology Normal
--- NOTE | 2021-12-02 10:59 | PC.NURSE ---
antihypertensive medications were held this am due to pt hypotension overnight and this am. md chapa and surgeon jose rafael made aware during rounds.
--- NOTE | 2021-12-02 11:21 | P.PN_ITS ---
Subjective Patient reports: pain is less Exam Data for Last 24 hours Vital signs and Labs for Last 24 Hours: Temp Pulse Resp BP Pulse Ox 97.6 F 97 H 16 115/50 L 92 L 12/02/21 08:00 12/02/21 08:00 12/02/21 08:00 12/02/21 08:00 12/02/21 08:00 Laboratory Results - last 24 hr 12/01/21 16:05: WBC 28.9 H*, RBC 4.78, Hgb 13.4, Hct 43.0, MCV 89.9, MCH 28.1, MCHC 31.2 L, RDW 14.5, Plt Count 440 H, MPV 9.2, Neut % (Auto) 91.5 H, Lymph % (Auto) 4.3 L, [place] % (Auto) 3.5, Eos % (Auto) 0.4, Baso % (Auto) 0.3, Neut # (Auto) 26.4 H, Lymph # (Auto) 1.2, [place] # (Auto) 1.0, Eos # (Auto) 0.1, Baso # (Auto) 0.1, Total Counted 100, Neutrophils % (Manual) 89 H, Lymphocytes % (Manual) 8 L, Monocytes % (Manual) 3, Platelet Estimate Normal, RBC Morphology Normal 12/01/21 16:05: Sodium 139, Potassium 3.4 L, Chloride 103, Carbon Dioxide 20 L, Anion Gap 19.4 H, BUN 17, Creatinine 1.10 H, Estimated Creat Clear 50, Estimated GFR 50 L, Est GFR ( Amer) 61, Glucose 212 H, Calcium 9.5, Total Bilirubin 1.1, AST 29, ALT 29, Alkaline Phosphatase 233 H, Total Protein 7.5, Albumin 3.9, Globulin 3.6 H, Albumin/Globulin Ratio 1.1 12/01/21 16:05: Lactate 2.0 12/01/21 17:07: SARS-CoV-2 (PCR) Not detected, Influenza A Untype (PCR) Not detected, Influenza Type B (PCR) Not detected 12/01/21 19:09: POC Glucose 262 H 12/02/21 08:45: WBC 19.6 H D, RBC 3.99 L, Hgb 11.3 L D, Hct 36.3 L, MCV 90.9, MCH 28.1, MCHC 31.0 L, RDW 14.4, Plt Count 317 D, MPV 9.7, Neut % (Auto) 91.2 H , Lymph % (Auto) 4.8 L, [place] % (Auto) 3.4, Eos % (Auto) 0.5, Baso % (Auto) 0.2, Neut # (Auto) 17.9 H, Lymph # (Auto) 0.9, [place] # (Auto) 0.7, Eos # (Auto) 0.1, Baso # (Auto) 0.0, Total Counted 100, Neutrophils % (Manual) 79 H, Band Neutrophils % 6.0, Lymphocytes % (Manual) 13, Monocytes % (Manual) 2, Platelet Estimate Normal, RBC Morphology Normal 12/02/21 08:45: Sodium 140, Potassium 3.3 L, Chloride 110 H, Carbon Dioxide 21 L , Anion Gap 12.3, BUN 22 H D, Creatinine 1.00, Estimated Creat Clear 55, Estimated GFR 56 L, Est GFR ( Amer) 68, Glucose 156 H D, Calcium 8.2 L, Total Bilirubin 0.4, AST 22, ALT 21 D, Alkaline Phosphatase 182 H, Total Protein 6.0 L, Albumin 3.0 L D, Globulin 3.0, Albumin/Globulin Ratio 1.0 L I & O for Last 24 hours: Intake & Output 11/29/21 11/30/21 12/01/21 12/02/21 11:59 11:59 11:59 11:59 Intake Total 1400 / 1400 Balance 1400 / 1400 Weight 295 lb Microbiology Reports for the Last 24 Hours: Microbiology 12/01/21 18:39 Rectum Gram Stain - Final Constitutional Constitutional: no acute distress *Routine Respiratory Exam Respiratory: Absent respiratory distress *Routine Cardiovascular Exam Cardiovascular: Absent tachycardia *Routine Skin Exam Comments: Dressing intact. Progress Note: A&P Assessment and plan (1) Abscess, perirectal: Status: Acute Assessment and plan: Continue IV antibiotics for now Dry dressing changes twice daily
--- NOTE | 2021-12-02 13:07 | P.CONPHA_ITS ---
[facility] Pharmacy VTE Monitoring Patient Demographics Admission date: 12/01/21 Report Date: 12/02/21 Time: 13:08 Patient Allergies Penicillins Allergy (Verified 07/07/21 08:02) Height: 1.68 m Weight: 133.81 kg Current Active Problems (Updated 12/01/21 @ 17:29 by Grzegorz Rowe MD) Abscess, perirectal (Acute) Sepsis (Acute) VTE Risk Labs: VTE Related Lab Results Hgb 11.3 g/dL (12.2-16.2) L D 12/02/21 08:45 Hct 36.3 % (37.0-47.0) L 12/02/21 08:45 Plt Count 317 K/mm3 (142-424) D 12/02/21 08:45 BUN 22 mg/dl (7-17) H D 12/02/21 08:45 Creatinine 1.00 mg/dl (0.52-1.04) 12/02/21 08:45 Estimated Creat Clear 55 mL/min (50-200) 12/02/21 08:45 Was VTE Risk Assessment Performed: Yes VTE Score: 5 VTE Risk Level: Low Risk Clinical Trial Participant: No Prophylaxis VTE Prophylaxis Ordered?: Yes Types of VTE Prophylaxis: TEDS Knee High Location of Applied Device: Bilateral Lower Extremeties
--- NOTE | 2021-12-02 13:08 | HMH.PHAINT1 ---
Pharmacy Intervention Comments: MEDICATION RECONCILIATION COMPLETE USING EXTERNAL PHARMACY FILL HISTORY.
[2021-12-02 14:23] LABS: Microscopic, Urine URINE MICROSCOPIC (MICROSCOPIC)
[2021-12-02 14:28] LABS: Appearance,Urine SL CLOUDY (Clear); Blood, Urine TRACE-I (Negative); Color,Urine AMBER (Yellow); Glucose,Urine (UA) Negative (Negative); Ketones,Urine Negative (Negative); Leukocyte Esterase,Urine Negative (Negative); Nitrate,Urine Negative (Negative); Protein,Urine 2+ (Negative); Specific Gravity, Urine >= 1.030 (1.005-1.030)
[2021-12-02 14:34] LABS: Bilirubin,Urine 1+ (Negative)
[2021-12-02 14:46] LABS: Bacteria,Urine 1+ /lpf; Mucus,Urine Trace /lpf
[2021-12-03] VITALS: BP 109/51; PULSE 91; RESP 18; TEMP 36.9; O2SAT 93
[2021-12-03 04:00] VITALS: BP 109/57; PULSE 83; RESP 18; TEMP 36.9; O2SAT 92
--- NOTE | 2021-12-03 04:43 | PC.NURSE ---
No acute changes since previous assessment. Pt has rested well this shift. Lung sounds are clear bilaterally on room air. Pt has c/o pain once so far this shift and was medicated for pain per mar. After medicating for pain pt became nauseated and vomited twice. Medicated per mar for nausea. Ambulating in room and to bathroom with assistance of her daughter or staff. VSS. Perianal abscess dressing changed as ordered.
[2021-12-03 05:00] VITALS: BMI 47.4
[2021-12-03 07:44] VITALS: O2SAT 91
[2021-12-03 08:00] VITALS: BP 110/60; PULSE 84; RESP 16; TEMP 36.7; O2SAT 93
[2021-12-03 08:55] LABS: Basophils % 0.1 % (0.1-2.0); Eosinophils # 0.1 K/mm3 (0.0-0.4); Eosinophils % 0.5 % (0.1-12.0); Hematocrit 36.8 % (37.0-47.0); Hemoglobin 11.2 g/dL (12.2-16.2); Lymphocytes # 1.4 K/mm3 (0.7-4.5); Lymphocytes % 6.6 % (10-50); Mean Corpuscular HGB Conc 30.3 g/dL (31.8-35.4); Mean Corpuscular Volume 92.3 fl (81-99); Mean Platelet Volume 10.1 fl (7.4-10.4); Monocytes # 0.7 K/mm3 (0.1-1.0); Monocytes % 3.4 % (1.7-9.3); Neutrophils # 18.1 K/mm3 (1.8-7.8); Neutrophils % 89.2 % (37.0-80.0); Platelet Count 385 K/mm3 (142-424); Red Blood Count 3.99 M/mm3 (4.20-5.40); Red Cell Distribution Width 14.4 % (11.5-17.5); White Blood Count 20.2 K/mm3 (4.8-10.8)
[2021-12-03 09:13] LABS: MANUAL DIFFERENTIAL MANUAL DIFFERENTIAL (MANUAL DIFF)
[2021-12-03 09:14] LABS: Alanine Aminotransferase 21 U/L (12-78); Albumin Level 2.9 g/dl (3.5-5.0); Albumin/Globulin Ratio 0.9 (1.1-1.8); Alkaline Phosphatase 223 U/L (38-126); Anion Gap 10.5 mEq/L (5-15); Aspartate Amino Transferase 25 U/L (14-36); Blood Urea Nitrogen 21 mg/dl (7-17); Calcium 8.4 mg/dl (8.4-10.2); Carbon Dioxide 24 mmol/L (22.0-30.0); Chloride 107 mmol/L (98-107); Creatinine Clearance Estimated 55 mL/min (50-200); Estimated Glomerular Filt Rate 64 ml/min (>60); GFR (African American) 77 ML/MIN (>60); Globulin 3.2 g/dL (1.3-3.2); Glucose 188 mg/dl (74-100); Potassium 3.5 mmoL/L (3.5-5.1); Sodium 138 mmol/L (136-145); Total Protein,Serum 6.1 g/dl (6.3-8.2)
[2021-12-03 09:18] LABS: Bilirubin,Total 0.1 mg/dl (0.2-1.3)
--- NOTE | 2021-12-03 09:37 | PC.NURSE ---
Courtesy tech kirstie: Pt is resting at this time.
--- NOTE | 2021-12-03 10:57 | P.PN_ITS ---
Subjective Patient reports: no new complaints Exam Data for Last 24 hours Vital signs and Labs for Last 24 Hours: Temp Pulse Resp BP Pulse Ox 98.1 F 84 16 110/60 93 L 12/03/21 08:00 12/03/21 08:00 12/03/21 08:00 12/03/21 08:00 12/03/21 08:00 Laboratory Results - last 24 hr 12/01/21 14:10: Urine Color Sherlyn, Urine Appearance Sl cloudy, Urine pH 6.0, Ur Specific [place] >= 1.030, Urine Protein 2+, Urine Glucose (UA) Negative, Urine Ketones Negative, Urine Blood Trace-i, Urine Nitrate Negative, Urine Bilirubin 1+ A, Urine Urobilinogen 4.0, Ur Leukocyte Esterase Negative, Urine WBC 3-5, Ur Squamous Epith Cells 3-5, Urine Bacteria 1+, Urine Mucus Trace 12/03/21 08:41: WBC 20.2 H*, RBC 3.99 L, Hgb 11.2 L, Hct 36.8 L, MCV 92.3, MCH 28.0, MCHC 30.3 L, RDW 14.4, Plt Count 385, MPV 10.1, Neut % (Auto) 89.2 H, Lymph % (Auto) 6.6 L, [place] % (Auto) 3.4, Eos % (Auto) 0.5, Baso % (Auto) 0.1, Neut # (Auto) 18.1 H, Lymph # (Auto) 1.4, [place] # (Auto) 0.7, Eos # (Auto) 0.1, Baso # (Auto) 0.0 12/03/21 08:41: Sodium 138, Potassium 3.5, Chloride 107, Carbon Dioxide 24, Anion Gap 10.5, BUN 21 H, Creatinine 0.90, Estimated Creat Clear 55, Estimated GFR 64, Est GFR ( Amer) 77, Glucose 188 H D, Calcium 8.4, Total Bilirubin 0.1 L, AST 25, ALT 21, Alkaline Phosphatase 223 H, Total Protein 6.1 L, Albumin 2.9 L, Globulin 3.2, Albumin/Globulin Ratio 0.9 L I & O for Last 24 hours: Intake & Output 11/30/21 12/01/21 12/02/21 12/03/21 11:59 11:59 11:59 11:59 Intake Total 1760 / 1760 1533 / 1533 Output Total 1100 / 1100 Balance 1760 / 1760 433 / 433 Weight 295 lb 295 lb 2 oz Microbiology Reports for the Last 24 Hours: Microbiology 12/01/21 18:39 Rectum Gram Stain - Final 12/01/21 18:39 Rectum Abscess Culture - Preliminary NO GROWTH AFTER 24 HOURS *Routine Respiratory Exam Respiratory: Absent respiratory distress *Routine Cardiovascular Exam Cardiovascular: Absent tachycardia *Routine Skin Exam Comments: Increased induration and erythematous blush along left perianal/buttock region Progress Note: A&P Assessment and plan (1) Abscess, perirectal: Status: Acute Assessment and plan: Overall clinical improvement; however, white blood cell count remains significantly elevated and she does have some increased induration and erythematous blush. Continue IV antibiotics/dressing changes Follow-up pending cultures NPO after midnight for washout in AM I have discussed the risks and benefits including, but not limited to: Bleeding Infection Damage to surrounding tissue Inherent risks of sedation The patient agrees to proceed.
--- NOTE | 2021-12-03 11:05 | PC.NURSE ---
Notified fluorescent solution mixer surgical team (Darline Grace & Mirna) that patient will be going to OR at 0600 in the morning (12/04) for an I&D
--- NOTE | 2021-12-03 11:14 | P.PN_ITS ---
Subjective *Date: 12/05/21 *Time: 07:16 Interval history: doing better - but still with pain and not at baseline activity - cultures pending Medical Exam Vital signs and Labs for Last 24 Hours: Temp Pulse Resp BP Pulse Ox 98.1 F 84 16 110/60 93 L 12/03/21 08:00 12/03/21 08:00 12/03/21 08:00 12/03/21 08:00 12/03/21 08:00 Laboratory Results - last 24 hr 12/01/21 14:10: Urine Color Sherlyn, Urine Appearance Sl cloudy, Urine pH 6.0, Ur Specific [place] >= 1.030, Urine Protein 2+, Urine Glucose (UA) Negative, Urine Ketones Negative, Urine Blood Trace-i, Urine Nitrate Negative, Urine Bilirubin 1+ A, Urine Urobilinogen 4.0, Ur Leukocyte Esterase Negative, Urine WBC 3-5, Ur Squamous Epith Cells 3-5, Urine Bacteria 1+, Urine Mucus Trace 12/03/21 08:41: WBC 20.2 H*, RBC 3.99 L, Hgb 11.2 L, Hct 36.8 L, MCV 92.3, MCH 28.0, MCHC 30.3 L, RDW 14.4, Plt Count 385, MPV 10.1, Neut % (Auto) 89.2 H, Lymph % (Auto) 6.6 L, [place] % (Auto) 3.4, Eos % (Auto) 0.5, Baso % (Auto) 0.1, Neut # (Auto) 18.1 H, Lymph # (Auto) 1.4, [place] # (Auto) 0.7, Eos # (Auto) 0.1, Baso # (Auto) 0.0 12/03/21 08:41: Sodium 138, Potassium 3.5, Chloride 107, Carbon Dioxide 24, Anion Gap 10.5, BUN 21 H, Creatinine 0.90, Estimated Creat Clear 55, Estimated GFR 64, Est GFR ( Amer) 77, Glucose 188 H D, Calcium 8.4, Total Bilirubin 0.1 L, AST 25, ALT 21, Alkaline Phosphatase 223 H, Total Protein 6.1 L, Albumin 2.9 L, Globulin 3.2, Albumin/Globulin Ratio 0.9 L I & O for Labs for Last 24 Hours: Intake & Output 0812/01/21 12/02/21 12/03/21 11:59 11:59 11:59 11:59 Intake Total 1760 / 1760 1533 / 1533 Output Total 1100 / 1100 Balance 1760 / 1760 433 / 433 Weight 295 lb 295 lb 2 oz Microbiology Reports for the Last 24 Hours: Microbiology 12/01/21 18:39 Rectum Gram Stain - Final 12/01/21 18:39 Rectum Abscess Culture - Preliminary NO GROWTH AFTER 24 HOURS Head: atraumatic Eyes: as per HPI ENT: mucous membranes dry Neck: trachea midline Respiratory: decreased breath sounds Cardiac: Reg Rate and Rhythm and Systolic Murmur GI: soft Extremities: tenderness Comment:: perirectal packing Neuro: Cranial Nerve 2-12 Intact Assessment and Plan Assessment and plan all Dx Plan of Treatment: Follow up as ordered by primary care provider
[2021-12-03 11:17] LABS: Lymphocytes % 13 % (10-50); Monocytes % 1 % (2-9); Neutrophils % 86 % (42-76); Platelet Estimate Normal; RBC Morphology Normal; Total Cells Counted 100
[2021-12-03 15:48] VITALS: BP 144/70; PULSE 92; RESP 17; TEMP 36.9; O2SAT 92
--- NOTE | 2021-12-03 17:44 | PC.NURSE ---
no changes in pt condition since previous shift. she has rested in bed for most of shift. did sit on edge of bed for meals and to visit with family. dsg changes as ordered pt tolerated well with pre medication per jun. c/o nausea once and was medicated with prn ant
[2021-12-03 19:43] VITALS: BP 128/58; PULSE 80; RESP 18; TEMP 36.9; O2SAT 90
[2021-12-04] VITALS (28 sets, daily range): BP systolic 97–143; BP diastolic 47–84; PULSE 69–120; RESP 13–20; TEMP 36.6–36.9; O2SAT 90–98; BMI 47.3
--- NOTE | 2021-12-04 05:58 | PC.NURSE ---
PT LEFT FLOOR VIA BED TO OR AT THIS TIME
--- NOTE | 2021-12-04 06:35 | EXP.SURG.PN ---
Subjective Patient reports: no new complaints Exam Data for Last 24 hours Vital signs and Labs for Last 24 Hours: Temp Pulse Resp BP Pulse Ox 97.8 F 79 18 143/66 H 94 L 12/04/21 03:35 12/04/21 03:35 12/04/21 03:35 12/04/21 03:35 12/04/21 03:35 Laboratory Results - last 24 hr 12/03/21 08:41: WBC 20.2 H*, RBC 3.99 L, Hgb 11.2 L, Hct 36.8 L, MCV 92.3, MCH 28.0, MCHC 30.3 L, RDW 14.4, Plt Count 385, MPV 10.1, Neut % (Auto) 89.2 H, Lymph % (Auto) 6.6 L, [place] % (Auto) 3.4, Eos % (Auto) 0.5, Baso % (Auto) 0.1, Neut # (Auto) 18.1 H, Lymph # (Auto) 1.4, [place] # (Auto) 0.7, Eos # (Auto) 0.1, Baso # (Auto) 0.0, Total Counted 100, Neutrophils % (Manual) 86 H, Lymphocytes % (Manual) 13, Monocytes % (Manual) 1 L, Platelet Estimate Normal, RBC Morphology Normal 12/03/21 08:41: Sodium 138, Potassium 3.5, Chloride 107, Carbon Dioxide 24, Anion Gap 10.5, BUN 21 H, Creatinine 0.90, Estimated Creat Clear 55, Estimated GFR 64, Est GFR ( Amer) 77, Glucose 188 H D, Calcium 8.4, Total Bilirubin 0.1 L, AST 25, ALT 21, Alkaline Phosphatase 223 H, Total Protein 6.1 L, Albumin 2.9 L, Globulin 3.2, Albumin/Globulin Ratio 0.9 L I & O for Last 24 hours: Intake & Output 12/01/21 12/02/21 12/03/21 12/04/21 11:59 11:59 11:59 11:59 Intake Total 1760 / 1760 1533 / 1533 1284 / 1284 Output Total 1100 / 1100 0 / 0 Balance 1760 / 1760 433 / 433 1284 / 1284 Weight 295 lb 295 lb 2 oz 294 lb 7.366 oz Microbiology Reports for the Last 24 Hours: Microbiology 12/01/21 16:05 Blood Blood Culture - Preliminary NO GROWTH AFTER 48 HOURS 12/01/21 16:05 Blood Blood Culture - Preliminary NO GROWTH AFTER 48 HOURS 12/01/21 18:39 Rectum Gram Stain - Final 12/01/21 18:39 Rectum Abscess Culture - Preliminary Constitutional Constitutional: no acute distress *Routine Respiratory Exam Respiratory: Absent respiratory distress *Routine Cardiovascular Exam Cardiovascular: Absent tachycardia *Routine Skin Exam Comments: Stable left perianal/buttock induration/erythema Progress Note: A&P Assessment and plan (1) Abscess, perirectal: Status: Acute Assessment and plan: Repeat washout this a.m.
--- NOTE | 2021-12-04 06:36 | EXP.OP.NOTE ---
Date of procedure: 12/04/21 Pre-op Diagnosis:: Left perianal/buttock/ischiorectal fossa abscess (status post prior incision and drainage) Post-op Diagnosis:: Same Procedure performed:: Washout/repeat incision and drainage of left perianal/buttock/ischiorectal fossa abscess Surgeon:: Travis Pozo MD OUTSIDE PARTS SALES:: Sanjay Harley Anesthesia: LMA Estimated blood loss (mL): 10 Operative findings:: Necrotic tissue along wound base (debrided) Microabscesses laterally (incised/drained) Operative note:: After informed consent was obtained the patient was taken to the operating room and maintained in a left lateral decubitus position. General anesthesia with laryngeal mask airway was achieved. Her buttock/perianal region was prepped and draped in a sterile fashion. The prior wound was carefully evacuated. Necrotic tissue from the base of the wound medially was debrided. Palpation revealed microabscesses laterally. A counterincision overlying this region was made with electrocautery in an elliptical fashion. The underlying subcutaneous tissue was carefully debrided. The wound was thoroughly irrigated and then packed with Kerlix. Both the medial/perianal wound opening and the more lateral/buttock wound opening were individually packed with Kerlix. The entire region was infiltrated with 1% lidocaine. Dressings were placed and the patient was transferred to recovery in stable condition. Condition: stable Disposition: PACU Specimens:: None Complications:: No immediate
--- NOTE | 2021-12-04 06:44 | EXP.ANES.I ---
[facility] Anesthesia Record Part I Anesthesia Record I Intake, IV Amount: 200 Estimated blood loss (mL): 5 Urine output (mL): 0 Blood Pressure: 143/84 SaO2: 94 Pulse Rate: 99 Respiratory Rate: 13 Temperature: 98.2 F Patient is:: Awake Stable to PACU at:: 06:38
[2021-12-04 06:55] LABS: POC Glucose,Bedside 146 (70-110)
--- NOTE | 2021-12-04 07:12 | EXP.ANES.II ---
[facility] Anesthesia Record Part II Anesthesia Record Part II Discharge Time: 19:30 Destination: Second Floor PACU nurse assessment reviewed?: Yes Patient Condition:: Good Anesthesia Complications:: None Swallowing reflex intact?: Yes Cyanosis?: No Blood Pressure: 103/61 Pulse Rate: 120 Temperature: 98.4 F Mental Status: Alert & Oriented Pain level:: 4 Nausea and/or vomitting:: None Intake, IV Amount: 0
--- NOTE | 2021-12-04 07:45 | SUR.PHASEI ---
LATE ENTRY 0648 BS obtained with results of 146. Debbie Harley CRNA notified. No new orders given at this time. Pt may be transferred to floor when appropriate. 0711 called and gave detailed report to Abel Miles med/surgical sales representative 0720 transported via bed to med/surg room. transported on 4L oxygen via nasal cannula. vitals signs stable. rates pain at level 4. left in stable condition with Abel Miles med/surgical sales representative and Aman King med/surgical sales representative at bedside.
--- NOTE | 2021-12-04 07:56 | PC.NURSE ---
LATE ENTRY - No changes since previous assessment. Pt has been NPO since midnight for I&D in AM. Dressing changed per order, brownish colored drainage draining from wound. Medicating per JUN for pain. Pt slept in intervals during my shift. IV infusing per order. Call light in reach.
--- NOTE | 2021-12-04 11:19 | EXP.PHA.CONS ---
Pharmacy Consult Date: 12/04/21 Time: 11:19 Referring provider: DR. BROWN Reason for Consult:: VANCOMYCIN DOSING Allergies Allergy/AdvReac Type Severity Reaction Status Date / Time Penicillins Allergy Verified 07/07/21 08:02 Home Medications Medication Instructions Recorded Confirmed Type aspirin 81 mg chewable tablet 81 mg PO DAILY Heart disease 07/07/21 12/01/21 History lisinopril 20 mg tablet 20 mg PO DAILY High blood pressure 07/07/21 12/02/21 History metformin 500 mg tablet 500 mg PO BIDWMEAL Diabetes 07/07/21 12/02/21 History bupropion HCl 150 mg 24 hr tablet, 150 mg PO BID mood 12/01/21 12/01/21 History extended release diltiazem HCl 120 mg 120 mg PO DAILY High blood pressure 12/01/21 12/01/21 History capsule,extended release 24 hr (Cartia XT) meloxicam 7.5 mg tablet 7.5 mg PO DAILY Arthritis 12/01/21 12/01/21 History tizanidine 4 mg tablet 4 mg PO BIDP PRN MUSCLE SPASMS 12/01/21 12/02/21 History metoprolol tartrate 50 mg tablet 50 mg PO BID High blood pressure 12/02/21 12/02/21 History simvastatin 40 mg tablet 40 mg PO HS Cholesterol 12/02/21 12/02/21 History New Prescriptions to Start Prescriptions: Height: 1.68 m Weight: 133.565 kg Laboratory Results:: Laboratory Results - last 24 hr 12/04/21 06:47: POC Glucose 146 H Assessment and Plan Assessment and plan all Dx Assessment and Plan for all problems:: Pharmacokinetic dosing service Objective: Patient: Floor: Age: 61 yo Serum creatinine: 0.90 mg/dL Height: 66.1 Inches Weight (kg): 133.6 Assessment: IBW (kg): 59.53 Dosing wt(kg): 133.6 Estimated Creatinine clearance (ml/min): 61.7 CRCL method: Cockcroft and Gault using ibw(default). Drug selected: Vancomycin Loading dose (mg): Vd (liters): 100.2 (factor used: 0.75 L/kg) Martir (hr-1): 0.056 Half life (hrs): 12.38 CLvanco=?? 5.611 L/hr Recommended dose: 2250 mg Interval: 18 hrs Infusion time (hrs): 2.0 Predicted peak (mcg/mL): 33.5 Predicted trough (mcg/mL): 13.67 Total body weight is being used for vancomycin dosing. Recommendations: Give Vancomycin 2250 mg q 18 hrs with an expected Cpeak of 33.5 mcg/ml and an expected Ctrough of 13.67 mcg/ml AUC 0-24 /RAUL Data: RAUL 0.5 mcg/mL:?? AUC/RAUL:? 1069.3 RAUL 1.0 mcg/mL:?? AUC/RAUL:? 534.7 --------- RAUL 1.5 mcg/mL:?? AUC/RAUL:? 356.4 RAUL 2.0 mcg/mL:?? AUC/RAUL:? 267.3 Thank you for the consult, will continue to follow. -CANDICE ZUÑIGA, SUED
--- NOTE | 2021-12-04 14:53 | EXP.PN ---
Subjective *Date: 12/04/21 *Time: 18:15 Interval history: taken to the OR this morning. OP note reviewed. Patient awake and oriented. Exam Data for Last 24 hours Vital signs and Labs for Last 24 Hours: Temp Pulse Resp BP Pulse Ox 98.1 F 74 18 104/48 L 90 L 12/04/21 07:53 12/04/21 14:00 12/04/21 14:00 12/04/21 14:00 12/04/21 13:00 Laboratory Results - last 24 hr 12/04/21 06:47: POC Glucose 146 H I & O for Last 24 hours: Intake & Output 12/01/21 12/02/21 12/03/21 12/04/21 23:59 23:59 23:59 23:59 Intake Total 1400 / 1400 840 / 840 2337 / 2337 1090 / 1090 Output Total 1100 / 1100 0 / 0 Balance 1400 / 1400 -260 / -260 2337 / 2337 1090 / 1090 Weight 290 lb 295 lb 0.009 oz 295 lb 2 oz 294 lb 7.366 oz Microbiology Reports for the Last 24 Hours: Microbiology 12/01/21 18:39 Rectum Gram Stain - Final 12/01/21 18:39 Rectum Abscess Culture - Preliminary 12/01/21 16:05 Blood Blood Culture - Preliminary NO GROWTH AFTER 48 HOURS 12/01/21 16:05 Blood Blood Culture - Preliminary NO GROWTH AFTER 48 HOURS Constitutional Constitutional: no acute distress *Routine HEENT Exam Head: Present normocephalic *Routine Neck Exam Neck: Present supple *Routine Respiratory Exam Respiratory: Present CTA bilaterally *Routine Cardiovascular Exam Cardiovascular: Present RRR *Routine Abdominal Exam Abdominal: Present soft *Routine Extremities Exam Extremities: Absent cyanosis Assessment and Plan *Assessment and plan (1) Abscess, perirectal: Status: Acute Category: Medical Code(s): K61.1 - Rectal abscess Plan cultures pending elevation noted in wbc dictates broader coverage until cultures available; will add vancomycin Assessment and plan all Dx Plan of Treatment: Follow up as ordered by primary care provider
--- NOTE | 2021-12-04 15:12 | PC.NURSE ---
Dressing changed at this time. old packing removed, brb noted when old packing removed. wound washed out with saline, moist kerlix packed in opening next to rectum. attempted to further pack the kerlix in first opening via 2nd opening (per directions from surgery). 2nd section of kerlix was packed into second opening. pt tolerated procedure fairly well. packing then covered with 4x4 and abd pad and tape.
--- NOTE | 2021-12-04 17:25 | PC.NURSE ---
pt has rested in her bed this shift, she was up to the side of the bed off and on as well. lungs are clear, bowel sounds are active in all quads. nad noted. pt family at bedside most of the day as well. pt able to rest well and states pain is barely noticeable following dressing change.
[2021-12-05 01:33] LABS: POC Glucose,Bedside 155 (70-110)
[2021-12-05 03:14] VITALS: BP 138/68; PULSE 83; RESP 18; TEMP 37; O2SAT 91
--- NOTE | 2021-12-05 03:19 | PC.NURSE ---
Addendum entered by Venus Manuel RN 12/05/21 05:07: Additonal Information: Old packing was removed, with bright red blood noted. Wound then cleaned with saline, dry kerlix packed in opening next to rectum, dry kerlix was packed into 2nd opening, both openings were covered with 4x4 then ABD pad and tape. Original Note: Patient resting with eyes closed, VSS, tolerated dressing change still with pain scale 5/10. Patient O2 dropped to 88% when sleeping earlier this shift, added 2L NC with O2 >92%. Patient shows no s/s of acute distress, call light in reach, bed at lowest level for safety; will continue to monitor.
[2021-12-05 05:00] VITALS: BMI 47.9
[2021-12-05 06:18] LABS: Basophils % 0.2 % (0.1-2.0); Eosinophils # 0.1 K/mm3 (0.0-0.4); Eosinophils % 0.7 % (0.1-12.0); Hematocrit 34.5 % (37.0-47.0); Hemoglobin 10.2 g/dL (12.2-16.2); Lymphocytes # 1.5 K/mm3 (0.7-4.5); Mean Corpuscular HGB Conc 29.5 g/dL (31.8-35.4); Mean Corpuscular Hemoglobin 27.2 pg (27.0-31.2); Mean Corpuscular Volume 92.2 fl (81-99); Mean Platelet Volume 8.5 fl (7.4-10.4); Monocytes # 0.6 K/mm3 (0.1-1.0); Monocytes % 4.6 % (1.7-9.3); Neutrophils # 10.6 K/mm3 (1.8-7.8); Neutrophils % 82.6 % (37.0-80.0); Platelet Count 397 K/mm3 (142-424); Red Blood Count 3.75 M/mm3 (4.20-5.40); Red Cell Distribution Width 13.8 % (11.5-17.5); White Blood Count 12.8 K/mm3 (4.8-10.8)
[2021-12-05 06:26] LABS: Chloride 108 mmol/L (98-107); Potassium 3.4 mmoL/L (3.5-5.1); Sodium 140 mmol/L (136-145)
[2021-12-05 06:29] LABS: Anion Gap 9.4 mEq/L (5-15); Blood Urea Nitrogen 16 mg/dl (7-17); Calcium 8.5 mg/dl (8.4-10.2); Carbon Dioxide 26 mmol/L (22.0-30.0); Creatinine Clearance Estimated 55 mL/min (50-200); Estimated Glomerular Filt Rate 85 ml/min (>60); GFR (African American) 103 ML/MIN (>60); Glucose 171 mg/dl (74-100)
[2021-12-05 08:00] VITALS: BP 150/78; PULSE 77; RESP 20; TEMP 36.7; O2SAT 91
--- NOTE | 2021-12-05 08:34 | P.PN_ITS ---
Subjective Patient reports: no new complaints Exam Data for Last 24 hours Vital signs and Labs for Last 24 Hours: Temp Pulse Resp BP Pulse Ox 98.6 F 83 18 138/68 91 L 12/05/21 03:14 12/05/21 03:14 12/05/21 03:14 12/05/21 03:14 12/05/21 03:14 Laboratory Results - last 24 hr 12/04/21 05:56: POC Glucose 155 H 12/05/21 05:50: WBC 12.8 H D, RBC 3.75 L, Hgb 10.2 L, Hct 34.5 L, MCV 92.2, MCH 27.2, MCHC 29.5 L, RDW 13.8, Plt Count 397, MPV 8.5, Neut % (Auto) 82.6 H, Lymph % (Auto) 12.0, [place] % (Auto) 4.6, Eos % (Auto) 0.7, Baso % (Auto) 0.2, Neut # (Auto) 10.6 H, Lymph # (Auto) 1.5, [place] # (Auto) 0.6, Eos # (Auto) 0.1, Baso # (Auto) 0.0 12/05/21 05:50: Sodium 140, Potassium 3.4 L, Chloride 108 H, Carbon Dioxide 26, Anion Gap 9.4, BUN 16, Creatinine 0.70 D, Estimated Creat Clear 55, Estimated GFR 85, Est GFR ( Amer) 103 D, Glucose 171 H, Calcium 8.5 I & O for Last 24 hours: Intake & Output 12/02/21 12/03/21 12/04/21 12/05/21 11:59 11:59 11:59 11:59 Intake Total 1760 / 1760 1533 / 1533 2374 / 2374 2948 / 2948 Output Total 1100 / 1100 0 / 0 0 / 0 Balance 1760 / 1760 433 / 433 2374 / 2374 2948 / 2948 Weight 295 lb 295 lb 2 oz 294 lb 7.366 oz 298 lb 7.009 oz Microbiology Reports for the Last 24 Hours: Microbiology 12/01/21 18:39 Rectum Gram Stain - Final 12/01/21 18:39 Rectum Abscess Culture - Preliminary Constitutional Constitutional: no acute distress *Routine Respiratory Exam Respiratory: Absent respiratory distress *Routine Cardiovascular Exam Cardiovascular: Absent tachycardia *Routine Skin Exam Comments: Dressing in place. No spreading cellulitis. Progress Note: A&P Assessment and plan (1) Abscess, perirectal: Status: Acute Assessment and plan: Overall, doing well status post incision and drainage and subsequent washout of large complex left perianal/buttock/ischiorectal fossa abscess. Continue dressing changes and antibiotics (2) Diabetes mellitus: Status: Chronic (3) Obesity: Status: Chronic (4) Renal insufficiency: Status: Acute
--- NOTE | 2021-12-05 08:51 | P.PN_ITS ---
Subjective *Date: 12/05/21 *Time: 08:51 Medical Exam Vital signs and Labs for Last 24 Hours: Temp Pulse Resp BP Pulse Ox 98.1 F 77 20 150/78 H 91 L 12/05/21 08:00 12/05/21 08:00 12/05/21 08:00 12/05/21 08:00 12/05/21 08:00 Laboratory Results - last 24 hr 12/04/21 05:56: POC Glucose 155 H 12/05/21 05:50: WBC 12.8 H D, RBC 3.75 L, Hgb 10.2 L, Hct 34.5 L, MCV 92.2, MCH 27.2, MCHC 29.5 L, RDW 13.8, Plt Count 397, MPV 8.5, Neut % (Auto) 82.6 H, Lymph % (Auto) 12.0, [place] % (Auto) 4.6, Eos % (Auto) 0.7, Baso % (Auto) 0.2, Neut # (Auto) 10.6 H, Lymph # (Auto) 1.5, [place] # (Auto) 0.6, Eos # (Auto) 0.1, Baso # (Auto) 0.0 12/05/21 05:50: Sodium 140, Potassium 3.4 L, Chloride 108 H, Carbon Dioxide 26, Anion Gap 9.4, BUN 16, Creatinine 0.70 D, Estimated Creat Clear 55, Estimated GFR 85, Est GFR ( Amer) 103 D, Glucose 171 H, Calcium 8.5 I & O for Labs for Last 24 Hours: Intake & Output 12/02/21 12/03/21 12/04/21 12/05/21 23:59 23:59 23:59 23:59 Intake Total 840 / 840 2336 / 2336 3263 / 3263 935 / 935 Output Total 1100 / 1100 0 / 0 0 / 0 0 / 0 Balance -260 / -260 2337 / 233 3263 / 3263 935 / 935 Weight 133.81 kg 133.866 kg 133.565 kg 135.369 kg Microbiology Reports for the Last 24 Hours: Microbiology 12/01/21 18:39 Rectum Gram Stain - Final 12/01/21 18:39 Rectum Abscess Culture - Preliminary Assessment and Plan Assessment and plan all Dx Plan of Treatment: Follow up as ordered by primary care provider The patient's infection will respond to the chosen ABx?: Yes Is the patient receiving the right drug, dose, and route?: Yes Could a more targeted ABx be ordered?: No (EMPIRIC THERAPY AT THIS TIME, AWAITING CULTURES)
--- NOTE | 2021-12-05 10:43 | PC.NURSE ---
Rounded on pt, cleaned and straightened room. Pt sitting up in chair, family at bedside. No needs voiced at this time.
[2021-12-05 12:00] VITALS: BP 144/68; PULSE 81; RESP 20; TEMP 36.8; O2SAT 97
--- NOTE | 2021-12-05 14:25 | EXP.DC.SUM ---
General Admission date:: 12/01/21 Discharge date: 12/05/21 HPI HPI HPI: This is a 61-year-old female seen in consultation after presenting to the emergency department with perianal and left buttock pain. She was diagnosed with a complex abscess and the surgical service was consulted. Please see HPI forwarded from emergency department evaluation below. Forwarded from emergency department evaluation: General Adult HPI General Chief complaint: Skin/Abscess/Foreign Body Stated complaint: SPOT ON LEFT SIDE OF TAIL Time Seen by Provider: 12/01/21 16:55 Mode of Arrival: Wheelchair Source of Information: Patient Limitations: No Limitations Description of Symptoms (Recalled from ER Triage Doc. by RN): Pt reports she has a sore on her L lower buttocks area.? Pt reports area first noticed on Saturday of this week.? Pt reports was seen by PCP was told she possibly has an internal hemrrhoid, states she was told they were going to call in medication for her but they have not.? Upon exam pt does raised area near rectum but also her L buttock area is hard and warm to the touch. History of Present Illness HPI narrative: Patient has a painful sore on her left perianal and buttock area since Saturday.? Has seen her primary care provider and was supposed to be called in medication but has not yet received it.? Denies fever.? Has felt ill and has not been eating much, therefore has not had a bowel movement in 4 days.? No prior similar problems.? The patient does have diabetes.?reports she has a sore on her L lower buttocks area.? Pt reports area first noticed on Saturday of this week.? Pt reports was seen by PCP was told she possibly has an internal hemrrhoid, states she was told they were going to call in medication for her but they have not.? Upon exam pt does raised area near rectum but also her L buttock area is hard and warm to the touch. abscess pt had not been feeling well over the last few days with dec po intake and was seen in the ed with -pt admitted Hospital Course Hospital Course Hospital Course: 61 YOF to ED for report of pain to perianal and left buttock pain.? She was diagnosed with a complex abscess and the surgical service was consulted. General Surgery seen and performed incision and drainage Operative note:: After informed consent was obtained the patient was taken to the operating room and maintained in a left lateral decubitus position.? General anesthesia with laryngeal mask airway was achieved.? Her buttock/perianal region was prepped and draped in a sterile fashion.? The prior wound was carefully evacuated.? Necrotic tissue from the base of the wound medially was debrided.? Palpation revealed microabscesses laterally.? A counterincision overlying this region was made with electrocautery in an elliptical fashion.? The underlying subcutaneous tissue was carefully debrided.? The wound was thoroughly irrigated and then packed with Kerlix.? Both the medial/perianal wound opening and the more lateral/buttock wound opening were individually packed with Kerlix.? The entire region was infiltrated with 1% lidocaine.? Dressings were placed and the patient was transferred to recovery in stable condition. Condition: stable Disposition: PACU Specimens:: None Complications:: No immediate During her stay she received Levofloxacin, Flagyl, and Vancomycin Blood Cultures NEG at 48 hours Will follow wound cultures She has been up in chair and participated in PT Dressing changes daily and daughter has witnessed and will be changing at home Discharge home today -Levofloxacin x 7 days -Clindamycin x 7 days -[place] 5 #14 for dressing changes -Change drsg daily and as needed Exam Data for Last 24 hours Vital signs and Labs for Last 24 Hours: Temp Pulse Resp BP Pulse Ox 98.1 F 77 20 150/78 H 91 L 12/05/21 08:00 12/05/21 08:00 12/05/21 08:00 12/05/21 08:00 12/05/21 08:00 Laboratory Results - last 24 hr 12/04/21 05:56: POC
--- NOTE | 2021-12-05 15:02 | PC.NURSE ---
rounded on patient. educated on plan at discharge, family feels comfortable doing dressing changes. educated on frequency being BID and as needed. educated on medication patient is being sent home with. called md about patient requests for pain medication at home and he stated he would send norco to patients pharmacy. no further questions or concerns. encouraged her to ring out with any needs or questions.
[2021-12-05 16:00] VITALS: BP 138/64; PULSE 70; RESP 19; TEMP 36.6; O2SAT 96
--- NOTE | 2021-12-05 17:52 | PC.NURSE ---
PT WILL BE DISCHARGED HOME WITH DAILY DRESSING CHANGES AND FOLLOW UP WITH . DRESSING TO BUTTOCKS WAS CHANGED BEFORE DISCHARGE. PACKED WITH DRY KERLIX AND REINFORCED WITH DRY 4X4/TAPE. DAUGHTER AT BEDSIDE DURING DRESSING CHANGE AND WAS GIVEN SUPPLIES. PT WILL HAVE PO ANTIBIOTICS TO TAKE AT HOME AND PAIN MEDICATION NEEDED.
--- NOTE | 2021-12-06 08:26 | P.PNANES_ITS ---
[facility] Anesthesia Record Part II Anesthesia Record Part II Discharge Time: 07:20 Destination: Medical Surgical Department PACU nurse assessment reviewed?: Yes Patient Condition:: Good Anesthesia Complications:: None Swallowing reflex intact?: Yes Cyanosis?: No Blood Pressure: 125/54 Pulse Rate: 89 Temperature: 98.1 F Mental Status: Alert & Oriented Pain level:: 4 Nausea and/or vomitting:: None Intake, IV Amount: 0
[2021-12-06 08:27] VITALS: BP 125/54; PULSE 89; TEMP 36.7
--- NOTE | 2021-12-06 13:20 | CARE MANAGER ---
Contacted patient related to discharge from hospital. She states she is doing better, but is still uncomfortable. 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 She denies questions or concerns and is aware of follow up appointments. [place]
== END 2021-12-05 18:01 | disposition home or self-care (01) | DRG 345 ==
LOC: ER 17:55 → SDC 18:13 → 2ND 19:12
PROVIDERS: Nurse Practitioner Family; Admitting Provider Emergency Medicine; Emergency Provider Emergency Medicine; PCP Nurse Practitioner Family; Referring Provider Surgery; Visit Provider Emergency Medicine
PROC: 0D9P0ZZ Drainage of Rectum, Open Approach (ICD-10-PCS; principal; 2021-12-01 18:30)
DX: K61.1 Rectal abscess (principal); Z68.42 Body mass index [BMI] 45.0-49.9, adult; E11.9 Type 2 diabetes mellitus without complications; E66.01 Morbid (severe) obesity due to excess calories; N28.9 Disorder of kidney and ureter, unspecified
CPT/HCPCS: 45005 ×2; 36415; 71045; 80048; 80053; 81001; 82962; 83605; 85007; 85025; 87040; 87070; 87075; 87186; 87205; 93005; C9803; J1956; J2405; J3370; U0003; U0005